=== PATIENT | male | born 1970 | race Caucasian/White ===

== ENCOUNTER 2021-01-20 13:11 | Emergency (ER) | payer SELFPAY ==
[2021-01-20] MEDS ORDERED: Ketorolac 30 MG/ML SDV IVPUSH ONE (16:00)
[2021-01-20] MEDS ORDERED: Sodium Chloride 0.9% 1,000 ML IV ONE (16:00)
[2021-01-20] MEDS ORDERED: Ondansetron 4 MG/2 ML SDV IVPUSH ONE (16:00)
[2021-01-20] MEDS ORDERED: HYDROmorphone 1 MG/ML Syringe IVPUSH ONE ×2 (16:01→19:15)
--- NOTE | 2021-01-20 16:16 | PCM.EKG ---
#1 Interpretation Time: 16:16 EKG Interpretation Comments: AD, normal sinus rhythm, incomplete right bundle branch block
--- NOTE | 2021-01-20 17:08 | CR ---
INDICATION: Epigastric abdominal pain. TECHNIQUE: Chest 1 view. COMPARISON: None. FINDINGS: No focal consolidation, pleural effusion, or pneumothorax. Normal heart size and pulmonary vascularity. Old left clavicle fracture. Mild elevation of the right hemidiaphragm. IMPRESSION: No acute cardiopulmonary findings. Dictated by Cher Elam MD @ 01/20/2021 5:06:[address] Cher Elam @ Jan 20 2021 5:06PM
[2021-01-20 17:26] LABS: BLOOD UREA NITROGEN,BUN 18 mg/dL (7.0-18.0); CARBON DIOXIDE,CO2 24.6 mmol/L (21.0-32.0); CHLORIDE,CL 101 mmol/L (98-107); GLUCOSE RANDOM 100 mg/dL (74-106); LIPASE 47 U/L (73-393); POTASSIUM,K 4.4 mmol/L (3.5-5.1); SODIUM,NA 136 mmol/L (136-148)
[2021-01-20] MEDS ORDERED: Iopamidol 755 MG/ML 500 ML Multipack Bottle IVPUSH STA (18:26)
--- NOTE | 2021-01-20 19:33 | CT ---
INDICATION: Epigastric abdominal pain TECHNIQUE: CT Abdomen and pelvis with i.v. contrast. Coronal and sagittal reformats were obtained. CONTRAST: 100 mL Isovue 370 COMPARISON: None FINDINGS: Lower chest: Unremarkable. Liver: Unremarkable. Spleen: Unremarkable. Pancreas: Unremarkable. Gallbladder: Unremarkable. Kidney: Unremarkable. No kidney or ureteral stones or obstruction seen. Adrenal: Unremarkable. Bowel: Severe low-density wall thickening of the gastric antrum is present with anterior antral wall measuring 2 cm. Severe diverticulosis of the colon is present with faint ground-glass infiltration near the proximal sigmoid colon. Small sliding type gastric hiatal hernia (type IV) is present with suspected asymmetric wall thickening. The appendix is normal in appearance and size. Vascular: Unremarkable. Lymph: Unremarkable. Peritoneum: Unremarkable. No pneumoperitoneum is seen. No significant ascites is noted. Pelvis: Unremarkable. Soft tissue: Unremarkable. Bone: Unremarkable for age. IMPRESSIONS: 1. Severe low-density wall thickening of the gastric antrum is present with anterior antral wall measuring 2 cm. Further evaluation endoscopy is recommended. 2. Small sliding type gastric hiatal hernia (type IV) is present with suspected asymmetric wall thickening. This can also be assessed by endoscopy. 3. Severe diverticulosis of the colon is present with faint ground-glass infiltration near the proximal sigmoid colon. Clinical correlation is recommended to exclude mild diverticulitis. Dictated by Miguel Angel Rao MD @ 01/20/2021 7:25:26 PM Please note that all CT scans at this facility use dose modulation, iterative reconstruction, and/or weight-based dosing when appropriate to reduce radiation dose to as low as reasonably achievable. Dictated by: Miguel Angel Rao MD @ 01/20/2021 19:31:53 (Electronically Signed)
[2021-01-20] MEDS ORDERED: Pantoprazole 80 MG in Sodium Chloride 0.9% 20 ML IVPUSH ONE (19:43)
[2021-01-20] MEDS ORDERED: Alum Hydrox/Mag Hydrox/Simeth 15 ML, Lidocaine 2% 5 ML PO ONE ×2 (19:44)
--- NOTE | 2021-01-20 19:47 | EDM.PDOC ---
ED HPI GENERAL MEDICAL PROBLEM - General Chief Complaint: Gastrointestinal Problem Stated Complaint: STOMACH PAIN AND VOMITING Time Seen by Provider: 01/20/21 15:30 Source of Information: Reports: Patient History Limitations: Reports: No Limitations - History of Present Illness INITIAL COMMENTS - FREE TEXT/NARRATIVE: HISTORY AND PHYSICAL: History of present illness: Patient is a 50-year-old male who presents emergency room today with concern of left upper abdominal pain that has been ongoing since yesterday. Patient states since the onset of symptoms he has had 2 episodes of vomiting and a few episodes of looser stools. Patient states that today the abdominal pain is worsened and states that he has not been able to eat or drink as this worsens his abdominal discomfort. Patient states that he does have a history of underlying kidney issues and has had blood in his urine which is why he takes lisinopril in order to "protect his kidneys ". Patient denies any other health history. Patient states that he is having associated heartburn and has taken a dose of Tums without relief of symptoms. Patient denies any abdominal surgeries. Patient denies fever, chills, chest pain, shortness of breath, or cough. Denies headache, neck stiff ness, change in vision, syncope, or near syncope. Denies constipation, or dysuria. Has not noted any blood in urine or stool. Review of systems: As per history of present illness and below otherwise all systems reviewed and negative. Past medical history: As per history of present illness and as reviewed below otherwise no ncontributory. Surgical history: As per history of present illness and as reviewed below otherwise noncontributory. Social history: See social history for further information Family history: As per history of present illness and as reviewed below otherwise noncontributory. Physical exam: General: Patient is alert, oriented, and in no acute distress. Patient laying comfortably on exam table. Vitals stable and reviewed by me HEENT: Atraumatic, normocephalic, pupils equal and reactive bilaterally, negative for conjunctival pallor or scleral icterus, mucous membranes moist, TMs normal bilaterally, throat clear, neck supple, nontender, trachea midline. No drooling or trismus noted. No meningeal signs. No hot potato voice noted. Lungs: Clear to auscultation, breath sounds equal bilaterally, chest nontender. Heart: S1S2, regular rate and rhythm without overt murmur Abdomen: Soft, nondistended, mild to moderate left upper abdominal tenderness on exam without guarding, negative rebound, negative [place]. Negative for masses or hepatosplenomegaly. Negative for costovertebral tenderness. Pelvis: Stable nontender. Genitourinary: Deferred. Rectal: Deferred. Skin: Intact, warm, dry. No lesions or rashes noted. Extremities: Atraumatic, negative for cords or calf pain. Neurovascular unremarkable. Neuro: Awake, alert, oriented. Cranial nerves II through XII unremarkable. Cerebellum unremarkable. Motor and sensory unremarkable throughout. Exam nonfocal. Notes: Patient is a 42-year-old male who presents emergency room today secondary to left upper abdominal pain, nausea, 2 episodes of nonbloody/nonbilious vomiting, and looser stools x2 days. Upon arrival to the ED, patient is vitally stable and laying comfortably on exam table but does have mild to moderate left upper abdominal tenderness on exam. Patient does have intermittent episodes on exam of increased abdominal pain which resolved after a few seconds that he rates 10 out of 10. Will obtain cardiac evaluation/routine lab work with abdominal pelvic CT scan with contrast. CBC shows a mild elevation of hemoglobin at 17.1, otherwise mild derangements of CBC is unremarkable. CMP shows an elevation of creatinine mild at 1.4 with normal BUN. Total bilirubin is mildly elevated at 1.8 in isolation, nonspecific at this time. Troponin negative. Lipase within normal limits. Urinalysis does show 20-25 red blood cells with negative leukocyte esterase and negative nitrate. 0 white blood cells. 40 ketones with 100 protein. Chest x-ray shows no acute cardiopulmonary findings. Abdominal pelvic CT scan with contrast shows severe low-density wall thickening of the gastric antrum is present with anterior antral wall measuring 2 cm. Small sliding-type gastric hiatal hernia type IV is present with suspected asymmetric wall thickening. Severe diverticulosis of the colon with faint groundglass infiltration near the proximal sigmoid colon. Correlate for mild diverticulitis. Upon reevaluation of patient, he remains vitally stable and has improved abdominal pain with therapeutics in the emergency room today. Strict return precautions thoroughly discussed with patient. Discussed importance for follow-up with a primary care provider and general surgery for endoscopy. All incidental findings of imaging and lab work today discussed with patient the importance to have this further evaluated with his primary care provider. Voices understanding and is agreeable to plan of care. Denies any further questions or concerns at this time. Diagnostics: CBC, CMP, EKG, lipase, UA chest x-ray, abdominal pelvic CT scan with contrast, troponin Therapeutics: Zofran, Toradol, normal saline, Dilaudid, Protonix Prescription: Protonix, Cipro, Flagyl Impression: Diverticulitis Gastritis Hematuria Plan: 1. Take medication as prescribed. You can also take Tylenol as directed for pain and discomfort. I would avoid ibuprofen given the concern of your stomach lining at this time as this could irritate your stomach lining further. Also recommend avoiding spicy foods and sticking to a bland diet. 2. Follow-up with a primary care provider and general surgeon as discussed. Return to the ED as needed and as discussed. Definitive disposition and diagnosis as appropriate pending reevaluation and review of above. Upper abdomen Pain Score (Numeric/FACES): 7 - Related Data Allergies Allergy/AdvReac Type Severity Reaction Status Date / Time albuterol Allergy Cannot Verified 01/20/21 15:41 Remember promethazine Allergy Cannot Verified 01/20/21 15:41 Remember Home Meds: Home Meds Ciprofloxacin [Ciprofloxacin HCl] 500 mg PO BID 14 Days #28 tab 01/20/21 [Rx] Pantoprazole Sodium [Protonix] 20 mg PO DAILY 30 Days #30 tablet. 01/20/21 [Rx] lisinopriL [Lisinopril] 1 tab PO DAILY 01/20/21 [History] metroNIDAZOLE [Flagyl] 500 mg PO Q8H 14 Days #42 tab 01/20/21 [Rx] Past Medical History HEENT History: Reports: None Cardiovascular History: Reports: Hypertension Respiratory History: Reports: None Gastrointestinal History: Reports: None Genitourinary History: Reports: None Musculoskeletal History: Reports: None Neurological History: Reports: None Psychiatric History: Reports: None Endocrine/Metabolic History: Reports: None Hematologic History: Reports: None Immunologic History: Reports: None Oncologic (Cancer) History: Reports: None Dermatologic History: Reports: None - Infectious Disease History Infectious Disease History: Reports: None - Past Surgical History Head Surgeries/Procedures: Reports: None HEENT Surgical History: Reports: None Cardiovascular Surgical History: Reports: None Respiratory Surgical History: Reports: None GI Surgical History: Reports: None Male Surgical History: Reports: None Endocrine Surgical History: Reports: None Neurological Surgical History: Reports: None Musculoskeletal Surgical History: Reports: None Oncologic Surgical History: Reports: None Dermatological Surgical History: Reports: None Social & Family History - Family History Family Medical History: No Pertinent Family History - Tobacco Use Tobacco Use Status *Q: Never Tobacco User - Caffeine Use Caffeine Use: Reports: None - Recreational Drug Use Recreational Drug Use: No ED ROS GENERAL - Review of Systems Review Of Systems: Comprehensive ROS is negative, except as noted in HPI. ED EXAM, GENERAL - Physical Exam Exam: See Below (see dictation) Course - Vital Signs Last Recorded V/S: Last Vital Signs Temp 99.0 F 01/20/21 15:40 Pulse 74 01/20/21 19:53 Resp 20 01/20/21 19:53 BP 119/84 01/20/21 19:53 Pulse Ox 96 01/20/21 19:53 - Orders/Labs/Meds Labs: Laboratory Tests 01/20/21 01/20/21 01/20/21 Range/Units 15:45 15:45 16:27 WBC 9.58 (4.0-11.0) K/uL RBC 5.60 (4.50-5.90) M/uL Hgb 17.1 H (13.0-17.0) g/dL Hct 48.7 (38.0-50.0) % MCV 87.0 (80.0-98.0) fL MCH 30.5 (27.0-32.0) pg MCHC 35.1 (31.0-37.0) g/dL RDW Std Deviation 44.3 (28.0-62.0) fl RDW Coeff of Bridget 14 (11.0-15.0) % Plt Count 179 (150-400) K/uL MPV 10.40 (7.40-12.00) fL Neut % (Auto) 80.4 H (48.0-80.0) % Lymph % (Auto) 10.4 L (16.0-40.0) % [place] % (Auto) 8.9 (0.0-15.0) % Eos % (Auto) 0.2 (0.0-7.0) % Baso % (Auto) 0.1 (0.0-1.5) % Neut # (Auto) 7.7 H (1.4-5.7) K/uL Lymph # (Auto) 1.0 (0.6-2.4) K/uL [place] # (Auto) 0.9 H (0.0-0.8) K/uL Eos # (Auto) 0.0 (0.0-0.7) K/uL Baso # (Auto) 0.0 (0.0-0.1) K/uL Nucleated RBC % 0.0 /100WBC Nucleated RBCs # 0 K/uL Sodium 136 (136-148) mmol/L Potassium 4.4 (3.5-5.1) mmol/L Chloride 101 (98-107) mmol/L Carbon Dioxide 24.6 (21.0-32.0) mmol/L BUN 18 (7.0-18.0) mg/dL Creatinine 1.4 H (0.8-1.3) mg/dL Est Cr Clr Drug Dosing 81.32 mL/min Estimated GFR (MDRD) 54.1 ml/min Glucose 100 (74-106) mg/dL Calcium 9.3 (8.5-10.1) mg/dL Total Bilirubin 1.8 H (0.2-1.0) mg/dL AST 23 (15-37) IU/L ALT 28 (14-63) IU/L Alkaline Phosphatase 106 (46-116) U/L Troponin I < 0.050 (0.000-0.056) ng/mL Total Protein 8.1 (6.4-8.2) g/dL Albumin 3.9 (3.4-5.0) g/dL Globulin 4.2 H (2.6-4.0) g/dL Albumin/Globulin Ratio 0.9 (0.9-1.6) Lipase 47 L (73-393) U/L Urine Color YELLOW Urine Appearance HAZY Urine pH 6.0 (5.0-8.0) Ur Specific [place] >= 1.030 (1.001-1.035) Urine Protein 100 H (NEGATIVE) mg/dL Urine Glucose (UA) NEGATIVE (NEGATIVE) mg/dL Urine Ketones 40 H (NEGATIVE) mg/dL Urine Occult Blood LARGE H (NEGATIVE) Urine Nitrite NEGATIVE (NEGATIVE) Urine Bilirubin SMALL H (NEGATIVE) Urine Ictotest NEGATIVE Urine Urobilinogen 0.2 (<2.0) EU/dL Ur Leukocyte Esterase NEGATIVE (NEGATIVE) Urine RBC 20-25 (0-2/HPF) Urine WBC 0-1 (0-5/HPF) Ur Epithelial Cells FEW (NONE-FEW) Amorphous Sediment LIGHT (NEGATIVE) Urine Bacteria FEW (NEGATIVE) Urine Mucus MODERATE (NONE-MOD) Meds: Medications Discontinued Medications Generic Name Dose Route Start Last Admin Trade Name Macy PRN Reason Stop Dose Admin Al Hydroxide/Mg Hydroxide 15 0 ml 01/20/21 19:44 01/20/21 20:02 ml/ Lidocaine HCl 5 ml PO 01/20/21 19:45 1 each ONETIME ONE Administration Hydromorphone HCl 1 mg 01/20/21 16:01 01/20/21 16:30 Hydromorphone 1 Mg/Ml Syringe IVPUSH 01/20/21 16:02 1 mg ONETIME ONE Administration Hydromorphone HCl 1 mg 01/20/21 19:15 01/20/21 19:32 Hydromorphone 1 Mg/Ml Syringe IVPUSH 01/20/21 19:16 1 mg ONETIME ONE Administration Sodium Chloride 1,000 mls @ 999 mls/hr 01/20/21 16:00 01/20/21 16:30 Normal Saline IV 01/20/21 17:00 999 mls/hr BOLUS ONE Administration Pantoprazole Sodium 80 mg/ 20 mls @ 420 mls/hr 01/20/21 19:43 01/20/21 20:03 Sodium Chloride IVPUSH 01/20/21 19:45 420 mls/hr ONETIME ONE Administration Iopamidol 100 ml 01/20/21 18:26 01/20/21 18:26 Iopamidol 755 Mg/Ml 500 Ml Multipack Bottle IVPUSH 01/20/21 18:27 100 ml ONETIME STA Administration Ketorolac Tromethamine 30 mg 01/20/21 16:00 01/20/21 16:29 Ketorolac 30 Mg/Ml Sdv IVPUSH 01/20/21 16:01 30 mg ONETIME ONE Administration Ondansetron HCl 4 mg 01/20/21 16:00 01/20/21 16:29 Ondansetron 4 Mg/2 Ml Sdv IVPUSH 01/20/21 16:01 4 mg ONETIME ONE Administration Departure - Departure Time of Disposition: 19:46 Disposition: Home, Self-Care 01 Clinical Impression: Diverticulitis Gastritis Qualifiers: Gastritis type: unspecified gastritis Chronicity: acute Gastritis bleeding: without bleeding Qualified Code(s): K29.00 - Acute gastritis without bleeding Hematuria Qualifiers: Hematuria type: unspecified type Qualified Code(s): R31.9 - Hematuria, unspecified - Discharge Information Prescriptions: Ciprofloxacin [Ciprofloxacin HCl] 500 mg PO BID 14 Days #28 tab metroNIDAZOLE [Flagyl] 500 mg PO Q8H 14 Days #42 tab Pantoprazole Sodium [Protonix] 20 mg PO DAILY 30 Days #30 tablet.dr Instructions: Gastritis, Adult, [id number], Diverticulitis Referrals: PCP,None [Primary Care Provider] - Forms: ED Department Discharge Additional Instructions: The following information is given to patients seen in the emergency department who are being discharged to home. This information is to outline your options for follow-up care. We provide all patients seen in our emergency department with a follow-up referral. The need for follow-up, as well as the timing and circumstances, are variable depending upon the specifics of your emergency department visit. If you don't have a primary care physician on staff, we will provide you with a referral. We always advise you to contact your personal physician following an emergency department visit to inform them of the circumstance of the visit and for follow-up with them and/or the need for any referrals to a consulting specialist. The emergency department will also refer you to a specialist when appropriate. This referral assures that you have the opportunity for follow-up care with a specialist. All of these measure are taken in an effort to provide you with optimal care, which includes your follow-up. Under all circumstances we always encourage you to contact your private phys ician who remains a resource for coordinating your care. When calling for follow-up care, please make the office aware that this follow-up is from your recent emergency room visit. If for any reason you are refused follow-up, please contact the [facility] Emergency Department at and asked to speak to the emergency department charge nurse. [facility] [address] [place] [id number] [facility] - General Surgery [facility] [address] [place] [address], [address] [place] [address] 1. Take medication as prescribed. You can also take Tylenol as directed for pain and discomfort. I would avoid ibuprofen given the concern of your stomach lining at this time as this could irritate your stomach lining further. Also recommend avoiding spicy foods and sticking to a bland diet. 2. Follow-up with a primary care provider and general surgeon as discussed. Return to the ED as needed and as discussed. Sepsis Event Note (ED) - Focused Exam Vital Signs: Vital Signs Temp Temp Pulse Resp BP Pulse Ox 01/20/21 19:53 74 20 119/84 96 01/20/21 18:38 68 18 140/88 98 01/20/21 17:46 68 19 125/86 99 01/20/21 16:27 74 18 138/72 98 01/20/21 15:40 98.2 F 99.0 F 68 18 140/88 97
== END 2021-01-20 20:17 | disposition home or self-care (01) ==
LOC: MW.ED 13:11
DX: K29.00 Acute gastritis without bleeding (principal); K57.32 Diverticulitis of large intestine without perforation or abscess without bleeding; R31.9 Hematuria, unspecified; I10 Essential (primary) hypertension; Z88.8 Allergy status to other drugs, medicaments and biological substances; Z79.899 Other long term (current) drug therapy
CPT/HCPCS: 36415; 71045; 74177; 80053; 81001; 83690; 84484; 85025; 93005; 96374; 96375; 96376; 99284; A9270; C9113; J1170; J1885; J2405; J7030; Q9967

== ENCOUNTER 2022-12-14 02:59 | Emergency (ER) | payer SELFPAY ==
[2022-12-14] MEDS ORDERED: Sodium Chloride 0.9% 2.5 ML Syringe FLUSH PRN (03:23)
[2022-12-14] MEDS ORDERED: Sodium Chloride 0.9% 10 ML Syringe FLUSH PRN (03:23)
[2022-12-14] MEDS ORDERED: Diltiazem 25 MG/5 ML SDV IVPUSH ONE ×2 (03:24→03:54)
[2022-12-14 03:33] LABS: BASOPHILS PERCENT AUTO 0.2 % (0.0-1.5); EOSINOPHILS ABSOLUTE AUTO 0.1 K/uL (0.0-0.7); EOSINOPHILS PERCENT AUTO 0.7 % (0.0-7.0); HEMATOCRIT 44.8 % (38.0-50.0); HEMOGLOBIN 15.4 g/dL (13.0-17.0); LYMPHOCYTES ABSOLUTE AUTO 2.3 K/uL (0.6-2.4); LYMPHOCYTES PERCENT AUTO 28.1 % (16.0-40.0); MEAN CORPUSCULAR HEMOGLOBIN 30.5 pg (27.0-32.0); MEAN CORPUSCULAR HGB CONC 34.4 g/dL (31.0-37.0); MEAN CORPUSCULAR VOLUME 88.7 fL (80.0-98.0); MONOCYTES ABSOLUTE AUTO 0.9 K/uL (0.0-0.8); MONOCYTES PERCENT AUTO 10.5 % (0.0-15.0); NEUTROPHILS PERCENT AUTO 60.5 % (48.0-80.0); PLATELET COUNT,PLT 168 K/uL (150-400); RED BLOOD CELL COUNT 5.05 M/uL (4.50-5.90); WHITE BLOOD CELL COUNT,WBC 8.27 K/uL (4.0-11.0)
[2022-12-14 03:52] LABS: ALANINE AMINOTRANSFERASE,ALT 24 IU/L (14-63); ALBUMIN 3.3 g/dL (3.4-5.0); ALKALINE PHOSPHATASE 82 U/L (46-116); ASPARTATE AMNIOTRANSFERASE,AST 16 IU/L (15-37); BILIRUBIN TOTAL 1.1 mg/dL (0.2-1.0); BLOOD UREA NITROGEN,BUN 20 mg/dL (7.0-18.0); CALCIUM 8.4 mg/dL (8.5-10.1); CHLORIDE,CL 106 mmol/L (98-107); CREATINE KINASE,CK 141 U/L (26-308); CREATININE 1.6 mg/dL (0.8-1.3); EST CRCL DRUG DOSING (CG) 67.81 mL/min; GLUCOSE RANDOM 117 mg/dL (74-106); POTASSIUM,K 4.1 mmol/L (3.5-5.1); PROTEIN TOTAL,TP 7.2 g/dL (6.4-8.2); SODIUM,NA 142 mmol/L (136-148); TSH ULTRASENSITIVE 3.99 uIU/mL (0.36-3.74)
[2022-12-14 03:53] LABS: A/G RATIO 0.9 (0.9-1.6); ESTIMATED GFR 52 mL/min (>60)
[2022-12-14 03:54] LABS: ETHANOL BLOOD MEDICAL < 3.0 mg/dL
[2022-12-14] MEDS ORDERED: Aspirin 81 MG Tab.Chew PO SCH (04:00)
[2022-12-14] MEDS ORDERED: Aspirin 81 MG Tab.Chew PO STA (04:01)
[2022-12-14 04:08] LABS: D-DIMER QUANTITATIVE 0.42 mg/L FEU (0.00-0.50); INR 1.03 (0.86-1.11)
[2022-12-14 04:17] LABS: LACTIC ACID 0.9 mmol/L (0.4-2.0)
[2022-12-14 04:18] LABS: T4 FREE 0.96 ng/dL (0.76-1.46)
[2022-12-14] MEDS ORDERED: Diltiazem 100 MG in Sodium Chloride 0.9% 100 ML IV SCH (04:45)
[2022-12-14 05:28] LABS: APPEARANCE,URINE CLEAR; BILIRUBIN,URINE NEGATIVE (NEGATIVE); COLOR,URINE YELLOW; GLUCOSE,URINE NEGATIVE (NEGATIVE); KETONES,URINE NEGATIVE (NEGATIVE); LEUKOCYTE ESTERASE,URINE NEGATIVE (NEGATIVE); NITRITE,URINE NEGATIVE (NEGATIVE); OCCULT BLOOD,URINE TRACE-INTACT (NEGATIVE); PROTEIN,URINE NEGATIVE (NEGATIVE); UROBILINOGEN,URINE 0.2 EU/dL (<2.0)
[2022-12-14 05:38] LABS: AMPHETAMINES SCREEN, URINE NEGATIVE (CUTOFF=500); BACTERIA,URINE RARE (NEGATIVE); BARBITURATE SCREEN,URINE NEGATIVE (CUTOFF=200); BENZODIAZEPINES SCREEN,URINE NEGATIVE (CUTOFF=150); BUPRENORPHINE SCREEN,URINE NEGATIVE (CUTOFF=10); EPITHELIAL CELLS,URINE RARE (NONE-FEW); METHADONE SCREEN, URINE NEGATIVE (CUTOFF=200); METHAMPHETAMINES SCREEN, URINE NEGATIVE (CUTOFF=500); OXYCODONE SCREEN,URINE NEGATIVE (CUT0FF=100); PCP SCREEN,URINE NEGATIVE (CUTOFF=25); PROPOXYPHENE SCREEN,URINE NEGATIVE (CUTOFF=300); RBC,URINE 0-1 (0-2/HPF); THC SCREEN,URINE 20 NG/ML NEGATIVE (CUTOFF=50); WBC,URINE 0-1 (0-5/HPF)
== END 2022-12-14 06:01 | disposition left against medical advice (07) ==
LOC: MW.ED 02:59
DX: R07.89 Other chest pain (principal); I48.20 Chronic atrial fibrillation, unspecified; I10 Essential (primary) hypertension; Z88.8 Allergy status to other drugs, medicaments and biological substances
CPT/HCPCS: 36415; 71045; 80053; 80305; 80307; 81001; 82550; 83605; 83880; 84439; 84443; 84484; 85025; 85379; 85610; 93005; A9270; J3490; 93010; 96365; 96376; 99283; 99285-25